=== PATIENT | male | born 1985 | race African-American/Black ===

== ENCOUNTER 2017-03-23 20:07 | Emergency (ER) | payer OTHER ==
[2017-03-23] MEDS ORDERED: HYDROCODONE/ACETAMINOPHEN 5-325 MG TABLET PO ONE (20:30)
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
[2017-03-23] MEDS ORDERED: IBUPROFEN 600 MG TABLET PO ONE (21:29)
[2017-03-23] MEDS ORDERED: CYCLOBENZAPRINE HCL 10 MG TABLET PO ONE (21:29)
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
[2017-03-23 21:57] VITALS: BP 139/89
== END 2017-03-23 21:57 | disposition home or self-care (01) ==
LOC: ER 20:07
DX: M54.9 Dorsalgia, unspecified (principal); R51 Headache; V43.52XA Car driver injured in collision with other type car in traffic accident, initial encounter
CPT/HCPCS: 72050; 72070; 72110; 99283

== ENCOUNTER 2017-04-09 14:26 | Emergency (ER) | payer OTHER ==
[2017-04-09 14:41] VITALS: BP 136/92
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
== END 2017-04-09 15:50 | disposition home or self-care (01) ==
LOC: ER 14:26
DX: M54.2 Cervicalgia (principal); M54.9 Dorsalgia, unspecified; V43.52XA Car driver injured in collision with other type car in traffic accident, initial encounter; F17.210 Nicotine dependence, cigarettes, uncomplicated
CPT/HCPCS: 99283